=== PATIENT | male | born 1980 | race Two or more races ===

== ENCOUNTER 2021-05-07 12:51 | Emergency (ER) | payer BC ==
[~2021-05-07] VITALS: Ht 154.9 cm; Wt 81.6 kg
--- NOTE | 2021-05-07 12:51 | NUR ---
PT BIB FRIEND C/O BILAT FOOT PAIN AND SWELLING FOR DAYS. PT IS AAOX4, NOT IN RESPIRATORY DISTRESS, V/S STABLE, KEPT RESTED AND COMFORTABLE. WILL CONTINUE TO MONITOR.
--- NOTE | 2021-05-07 15:11 | NUR ---
AT BEDSIDE FOR EVAL.
[2021-05-07] MEDS ORDERED: IBUPROFEN 600 MG TABLET ONE (15:18)
[2021-05-07] MEDS ORDERED: HYDROCODONE/APAP 5/325MG TABLET ONE (15:18)
[2021-05-07] MEDS ORDERED: HYDROCODONE/APAP 5/325MG TABLET PO ONE (15:30)
[2021-05-07] MEDS ORDERED: IBUPROFEN 600 MG TABLET PO ONE (15:30)
--- NOTE | 2021-05-07 15:32 | NUR ---
IV LINE ESTABLISHED BLOOD DRAWN AND SENT TO LAB.
[2021-05-07 15:45] LABS: BASOPHILS % (AUTO) 0.3 % (0.0-2.0); EOSINOPHILS % (AUTO) 0.1 % (0.0-6.0); HEMATOCRIT 45 % (39-51); HEMOGLOBIN 14.9 g/dL (13.5-17.5); LYMPHOCYTES # (AUTO) 1.4 K/uL (0.8-4.8); LYMPHOCYTES % (AUTO) 11.3 % (20.0-44.0); MEAN CORPUSCULAR HGB CONC 33 g/dl (31.0-36.0); MEAN CORPUSCULAR VOLUME 95 fL (80-96); MONOCYTES # (AUTO) 0.7 K/uL (0.1-1.30); MONOCYTES % (AUTO) 6.1 % (2.0-12.0); NEUTROPHILS % (AUTO) 82.2 % (43.0-81.0); PLATELET COUNT (AUTO) 262 K/uL (150-450); WHITE BLOOD COUNT (AUTO) 12.2 K/uL (4.3-11.0)
[2021-05-07 15:59] LABS: CALCIUM, SERUM 9.2 mg/dL (8.5-10.1); POTASSIUM 3.4 mmol/L (3.5-5.1)
[2021-05-07] MEDS ORDERED: HYDR-3972 PO (16:50)
[2021-05-07] MEDS ORDERED: COLC0.6C3 PO (16:50)
[2021-05-07] MEDS ORDERED: PRED50TA PO (16:50)
--- NOTE | 2021-05-07 17:24 | NUR ---
IV removed. Catheter intact and site benign. Pressure and 4x4 applied to site. No bleeding noted.Patient discharged to home in stable condition. Written and verbal after care instructions given. Patient verbalizes understanding of instruction.
[2021-05-07 17:25] VITALS: BP 135/68
== END 2021-05-07 17:25 | disposition home or self-care (01) ==
LOC: ER 12:56
DX: R60.0 Localized edema (principal); M10.9 Gout, unspecified; R07.89 Other chest pain
CPT/HCPCS: 36415; 71045-TC; 73630-TC; 80048-TC; 84550-TC; 85025-TC